=== PATIENT | male | born 1980 | race Caucasian/White ===

== ENCOUNTER 2017-01-25 20:12 | Emergency (ER) | payer SELFPAY ==
[~2017-01-25] VITALS: Ht 177.8 cm; Wt 65.7 kg
[~2017-01-25 20:12] MED LIST: LORA24TA7 PO
[2017-01-25 20:25] VITALS: BP 111/66; PULSE 89; TEMP 36.8; O2SAT 95; Ht 177.8 cm; Wt 65.7 kg
--- NOTE | 2017-01-25 23:00 | EMERGENCY ROOM VISIT NOTE ---
History First contact with patient: 21:04 Chief Complaint: STD MALE Stated Complaint: BLISTERS ON PENIS Nursing Triage Summary: PT had procteced sex this am. This evening noticed two water blisters to tip of penis. PT has no painful urination and denies any other complaints at this time History of Present Illness The patient is a 36 year old male who presents to the Emergency Room with complaints of a blister on his penis. The patient reports that he noticed it this morning. The patient admits that he had rather vigorous sex last night which was intermittent and lasting several hours. He did wear a condom, however reports that the condom had been in his backpack for quite some time, and believes that it may have lost it lubricity. The patient reports that his last sexual encounter was approximately 2 years ago. He is not concerned for sexual transmitted infection, but wanted to have the wound checked. He reports that the blister is intact and not draining. Review of Systems 6 system review was performed and was negative except for pertinent positives and negatives as indicated in history of present illness Past Medical/Surgical History Medical Problems: (1) No significant past medical history Surgical Problems: (1) History of hand surgery (2) History of wisdom tooth extraction Family History Unknown Social History Smoking Status: Never Smoker Alcohol Use: none Marital Status: single Housing Status: lives with roommate Occupation Status: employed Current/Historical Medications Scheduled Loratadine/Pseudoephedrine (Claritin-D 24 Hour), 1 TAB PO DAILY Allergies Coded Allergies: Sulfa Drugs (Unverified Allergy, Mild, RASH, 01/25/17) Physical Exam Vital Signs Date Time Temp Pulse Resp B/P (MAP) Pulse Ox O2 Delivery O2 Flow Rate FiO2 01/25/17 20:25 36.8 89 18 111/66 95 Room Air Pain Rating (0-10): 0 Physical Exam CONSTITUTIONAL: Healthy and well nourished. HEENT: Normocephalic, atraumatic. Pupils equal, round and reactive. GASTROINTESTINAL: Bowel sounds present in all quadrants. Abdomen soft and nontender to palpation. GENITOURINARY: Examination shows a blister over the right lateral and distal penile shaft, located proximal to the dill. The patient is circumcised. There is no overriding or under any erythema. The blister is intact. It is easily compressible. INTEGUMENTARY: No rash or other significant dermatologic conditions noted. NEUROLOGIC: No focal neurologic deficits noted. Medical Decision & Procedures ED Course Patient history and physical exam were performed. Nurse's notes were reviewed. Vital signs were reviewed and normal. Clinical exam is consistent with a blister, likely from sexual activity and condom condition. I did show the patient how to apply a pressure gauze wrap to compress the blistered. He was instructed to NOT open the blistered. If it does spontaneously rupture, he was instructed to cut off the devitalized tissue, and apply an antibiotic ointment and dressing until it heals. He is also welcome to return to the emergency department for any further wound concerns. The patient was happy with plan of care, and voiced understanding of all discharge instructions. Medical Decision Impression Primary Impression: Blister of penis without infection Departure Information Dispostion Home / Self-Care Forms HOME CARE DOCUMENTATION FORM, IMPORTANT VISIT INFORMATION Patient Instructions My [facility] Additional Instructions Suggest applying gauze as instructed to put pressure on the blister and help with reabsorption. If blister opens, trim off excess tissue, clean wound twice daily and apply an antibiotic ointment and dressing until it heals. You are welcome to return to the emergency department any time for any further wound concerns or signs of infection. Problem Qualifiers Primary Impression: Blister of penis without infection Encounter type: initial encounter Qualified Codes: S30.822A - Blister ( nonthermal) of penis, initial encounter
== END 2017-01-25 21:37 | disposition home or self-care (01) ==
LOC: C.EDB 20:14 → C.EDD 21:37
DX: S30.822A Blister (nonthermal) of penis, initial encounter (principal); X58.XXXA Exposure to other specified factors, initial encounter